=== PATIENT | female | born 1990 | race Caucasian/White ===

== ENCOUNTER → 2017-03-29 | Outpatient (CLI) | payer BC ==
[2017-03-29 10:04] LABS: BETA HCG QUANT LESS THAN 1 MIU/ML (0-5)
[2017-04-02 19:53] LABS: PROGESTERONE 6.7 ng/mL (())
== END ==
LOC: CLAB 09:00
DX: N97.9 Female infertility, unspecified (principal)
CPT/HCPCS: 36415; 82670; 84144; 84702

== ENCOUNTER 2017-09-22 16:07 | Emergency (ER) | payer BC ==
[~2017-09-22] VITALS: Ht 165.1 cm; Wt 64.9 kg
--- NOTE | 2017-09-22 17:29 | PD ---
HPI Chief Complaint diarrhea Travel History International Travel<30 Days: No Contact w/Intl Traveler<30Days: No Known Affected Area: No History of Present Illness HPI .. 27-year-old 003, IUP at 16.0 care complicated by gestational surrogacy The patient presents complaining of watery diarrhea that started on Sunday, 5 days ago. She reports that she is only had diarrhea 2 times today but she has had this as frequent as 3-7 times per day. She denies any fever or chills, or vomiting, although she reported she felt some nausea. She denies any right upper quadrant or epigastric abdominal pain. She reports occasional nausea but tolerates oral intake by mouth well. She reports some generalized abdominal cramping. She reports that she has a 2-year-old and changes his diaper but denies that he has had any symptoms of illness other than an upper respiratory infection. She denies any ill contacts with nausea, vomiting, or diarrhea. She denies any recent antibiotic use or contact with wildlife or animals. She denies any travel. He does report she took liquids extra strength Tylenol 2 days ago reports she'll follow the directions on the bottle and only took 1 dose. The patient denies any alcohol use or ingestion of contaminated or spoiled food. She denies any painful contractions, leaking of fluid, or vaginal bleeding. She reports normal movement. She does report she felt her abdomen tighten 1 time this afternoon but denies any occurrences since. She denies any bloody or mucousy diarrhea. Weeks Gestation: 16 Para: 4 : 3 History Past Medical History Medical History: Denies Significant Hx Obstetric History Obstetric History 003 3 Past Surgical History Narrative Surgical Cholecystectomy Family History Narrative Family History Asthma, HTN, hypercholesterolemia, leukemia, DM Social History Alcohol Use: No Tobacco Use: No Substance Abuse: No Allergies-Medications (Allergen,Severity, Reaction): Coded Allergies: No Known Allergies (Verified Allergy, Unknown, 09/22/17) Home Meds Reported Medications Potassium Bicarbonate Effervescent (K-Effervescent) 25 Meq Tab, 1 TAB PO BID 09/22/17 Review of Systems General / Constitutional: No: Fever, Weight Gain, Weight Loss, Chills, Other Eyes: No: Diploplia, Blurred Vision, Visual changes, Pain, Photophobia, Other HENT: No: Headaches, Vertigo, Dental Difficulties, Lightheadedness, Other Cardiovascular: No: Irregular Rhythm, Chest Pain or Discomfort, Palpitations, Tachycardia, Syncope, Varicosities, Edema, Cyanosis, Other Respiratory: No: Cough, Short of Breath, Wheezing, Other Gastrointestinal: Nausea, Diarrhea, Abdominal Pain, Changes in Bowel Habits, No : Vomiting, Hematemesis, Hematochezia, Constipation, Indigestion, Loss of Appetite, Other Genitourinary: No: Urgency, Frequency, Dysuria, Nocturia, Hematuria, Decreased Urinary Output, Oliguria, Hesitancy, Dribbling, Incontinence, Pelvic Pain, Dyspareunia, Discharge, Menorrhagia, Vaginal Bleeding, Other Musculoskeletal: No: Limited ROM, Weakness, Cramping, Edema, Pain, Other Skin: No Rash, No Itching, No Dryness, No Lumps, No Change in Pigmentation, No Change in Nails, No Alopecia, No Lesions, No Breast Lumps, No Breast Tenderness , No Breast Swelling, No Other Neurologic: No: Weakness, Dizziness, Syncope, Focal Abnormalities, Coordination Problem, Headache, Slurred Speech, Seizures, Other Psychiatric: No: Anxiety, Depression, Suicidal Ideations, Disorder of Thought, Mood Disorder, Substance Abuse, Homicidal Ideation, Other Endocrine: No: Heat Intolerance, Cold Intolerance, Polydipsia, Polyuria, Other Hematologic/Lymphatic: No Easy Bruising, No Lymph Node Enlargement, No Other Physical Exam Narrative GENERAL: Well-nourished, well-developed patient. SKIN: Warm and dry. HEAD: Normocephalic and atraumatic. EYES: No scleral icterus. No injection or drainage. ENT: No nasal drainage noted. Mucous membranes pink. Airway patent. NECK: Supple, trachea midline. No JVD. CARDIOVASCULAR: Regular rate and rhythm without murmurs, gallops, or rubs. RESPIRATORY: Breath sounds equal bilaterally. No accessory muscle use. BREASTS: Bilateral exam showed no masses , no retractions, no nipple discharge. ABDOMEN/GI: Abdomen soft, non-tender, bowel sounds present, no rebound, no guarding Gravid to [-] weeks size Fundal Height: [-] GENITOURINARY: External Genitalia: intact and normal in appearance BUS glands: [-] Cervix: [-] Dilatation: [-] Effacement: [-] Station: [-] Presentation: [-] Membranes: [intact or ruptured] Uterine Contractions: [-] FHT's: Category: [-] Baseline: [-] Reactive: [-] Variability: [-] Decels: [-] EXTREMITIES: No cyanosis or edema. BACK: Nontender without obvious deformity. No CVA tenderness. NEUROLOGICAL: Awake and alert. Motor and sensory grossly within normal limits. Five out of 5 muscle strength in all muscle groups. Normal speech. Data Data Orders Orders Vital Signs (Adult) .ON ADMISSION (09/22/17 17:21) ^ Labor Status (09/22/17:) Urinalysis - C+S If Indicated (09/22/17:) Diet Liquid (09/22/17 Dinner) ^ Hydration (09/22/17) Cbc No Diff, Includes Plts (09/22/17:) Comprehensive Metabolic Panel (09/22/17:) Magnesium (Mg) (09/22/17:) Dextrose 5%-Lactated Ring Inj (D5-Lr Inj (09/22/17 17:30) Lactated Ringer's 1000 Ml Inj (Lr 1000 M (09/22/17 17:30) MDM Plan Assessment/plan: 1. IUP at 16.0 2. Acute diarrhea: Patient diarrhea 5 days with only 2 episodes today. Patient is tolerating by mouth intake. Discussed possible causes of diarrhea and the likely self-limited nature. There is no evidence of leukocytosis or febrile morbidity. There is no evidence of fever, bloody or mucoid stools suggestive of an invasive bacterial infection, there is no recent antibiotic use. The patient was given 50 mEq of potassium as per discussion with pharmacy and 400 mg mag oxide. She will take some additional potassium for oral repletion. There is no evidence of recent travel. Will order Stool specimen for bacterial culture, but even by the time of discharge, the patient was unable to pass diarrhea, despite several hours in the [facility], so Rx and sterile container given with Rx to return with stool for submission for bacterial culture. We discussed oral Imodium treatment for symptomatic therapy. 3. Elevated LFTs: The patient has elevated LFTs with AST 214 and ALT 153. Hepatitis panel was ordered. Discussed with the patient the potential for hepatitis A from a fecal/oral transmission. Advised the patient to avoid Tylenol. I did speak with the patient's private OB physician, Dr. Annette Ramos, who was advised of the patient's presenting symptoms, status, and laboratory evaluation and results. Her physician was appreciative for the courtesy call and in agreement with our evaluation and management. 4. UA: No evidence of urinary tract infection or dehydration 5. Hypokalemia: The patient has potassium at 3.0, likely due to her diarrhea however is able to tolerate oral intake and has tolerated oral potassium repletion. She'll be given a Rx for an additional 25 mEq to take BID tomorrow. 6. Reassuring heart tones were obtained 7. Surrogate 8. The patient should follow up with her primary physician in 2 days as scheduled, she reports she hasn't an appointment scheduled for Sunday. In the meantime she was given strict precautions to return for any fever, chills , nausea, vomiting, continued diarrhea, evidence of jaundice, abdominal pain, or other concerns. She was counseled at length and all of her questions were answered. Diagnosis Diagnosis: Primary Impression: 16 weeks gestation of Additional Impression: Diarrhea Disposition: 01 DISCHARGE HOME Condition: Laura Mahajan MD Sep 22, 2017 17:29
[2017-09-22] MEDS ORDERED: LACTATED RINGER'S 1000 ML INJ 1,000 ML IV ONE (17:30)
[2017-09-22] MEDS ORDERED: DEXTROSE 5%-LACTATED RING INJ 1,000 ML IV ONE (17:30)
[2017-09-22 17:34] LABS: HEMATOCRIT 33.9 % (35.0-46.0); MEAN CELL VOLUME 88.9 FL (80.0-100.0); MEAN CORPUSCULAR HEMOGLOBIN 30.4 PG (27.0-34.0); MEAN CORPUSCULAR HGB CONC 34.2 % (32.0-36.0); PLATELET COUNT 223 TH/MM3 (150-450); RED BLOOD COUNT 3.81 MIL/MM3 (4.00-5.30); RED CELL DISTRIBUTION WIDTH 13.1 % (11.6-17.2); REVIEW FLAG FINAL; WHITE BLOOD COUNT 6.8 TH/MM3 (4.0-11.0)
[2017-09-22 17:40] LABS: BLOOD, URINE NEG (NEG); COMMENT (UR) CULT NOT INDICATED; CULTURE IF INDICATED CULT NOT INDICATED; GLUCOSE,URINE NEG (NEG); KETONE, URINE NEG (NEG); MUCUS URINE FEW /lpf (OCC); NITRITE,URINE NEG (NEG); SQUAMOUS EPITHELIAL CELL URINE <1 /hpf (0-5); URINE COLOR YELLOW (YELLW/STRAW)
[2017-09-22 17:58] LABS: ALT (GPT) 153 U/L (10-53); ANION GAP 7 MEQ/L (5-15); AST (GOT) 214 U/L (15-37); BICARBONATE 24.6 MEQ/L (21.0-32.0); BLOOD UREA NITROGEN 8 MG/DL (7-18); CHLORIDE 107 MEQ/L (98-107); GLOMERULAR FILTRATION RATE 157 ML/MIN (>89); MAGNESIUM 1.5 MG/DL (1.5-2.5); SODIUM (NA) 139 MEQ/L (136-145)
[2017-09-22 18:00] LABS: ALKALINE PHOSPHATASE 104 U/L (45-117); TOTAL BILIRUBIN ADULT 0.8 MG/DL (0.2-1.0)
[2017-09-22] MEDS ORDERED: MAGNESIUM OXIDE 400 MG TAB PO ONE (18:30)
[2017-09-22] MEDS ORDERED: POTASSIUM CHLORIDE 25 MEQ EFFERVESCENT TAB PO ONE (18:30)
[2017-09-22] MEDS ORDERED: K-EF25TA PO (20:44)
== END 2017-09-22 21:11 | disposition home or self-care (01) ==
LOC: HOBED 16:07
DX: O99.89 Other specified diseases and conditions complicating pregnancy, childbirth and the puerperium (principal); R19.7 Diarrhea, unspecified; R10.13 Epigastric pain; O99.282 Endocrine, nutritional and metabolic diseases complicating pregnancy, second trimester; E87.6 Hypokalemia; Z3A.16 16 weeks gestation of pregnancy
CPT/HCPCS: 80053; 80074; 81001; 83735; 85027; 96360; 99284; J7120; J7121

== ENCOUNTER → 2017-09-24 | Outpatient (CLI) | payer BC ==
[~2017-09-24] MED LIST: K-EF25TA PO
== END ==
LOC: CLAB 09:04
PROVIDERS: ATTEND Obstetrics & Gynecology
DX: R19.7 Diarrhea, unspecified (principal)
CPT/HCPCS: 87506